=== PATIENT | female | born 1990 | race African-American/Black ===

== ENCOUNTER 2022-02-16 07:24 | Emergency (ER) | payer BC, OTHER ==
[2022-02-16 07:38] VITALS: BMI 34.4
[2022-02-16] MEDS ORDERED: SODIUM CHLORIDE 1,000 ML IV STA (08:01)
[2022-02-16 08:45] LABS: BASO % 1.7 % (0-2.0); EOS % 0.9 % (0-4.5); HEMATOCRIT 39.8 % (32.4-45.2); HEMOGLOBIN 13.3 GM/dL (10.7-15.3); LYMPH % 40.1 % (8-40); MCH 31.3 pg (25.7-33.7); MCHC 33.4 g/dl (32.0-36.0); MEAN CELL VOLUME 93.5 fl (80-96); MEAN PLT VOLUME 9.1 fl (7.5-11.1); MONO % 5.6 % (3.8-10.2); NEUT % 51.7 % (42.8-82.8); PLATELET COUNT 296 10^3/uL (134-434); RBC 4.26 M/mm3 (3.60-5.2); RDW 13.2 % (11.6-15.6); WHITE BLOOD COUNT 4.6 K/mm3 (4.0-10.0)
[2022-02-16 08:51] LABS: HCG,QUALITATIVE URINE Negative
[2022-02-16 09:15] LABS: ALBUMIN 3.5 g/dl (3.4-5.0); BLOOD UREA NITROGEN 12.6 mg/dL (7-18)
[2022-02-16 09:19] LABS: CREATININE 1.1 mg/dL (0.55-1.3)
[2022-02-16 09:21] LABS: BILIRUBIN,TOTAL 0.7 mg/dL (0.2-1); TOT PROT 7.3 g/dl (6.4-8.2)
[2022-02-16 10:04] LABS: URINE APPEARANCE CLOUDY; URINE BILIRUBIN NEGATIVE (NEGATIVE); URINE COLOR DARK YELLOW; URINE GLUCOSE (UA) NEGATIVE (NEGATIVE); URINE KETONE 1+ (NEGATIVE)
[2022-02-16 10:05] LABS: EPI CELLS 18 /uL (0-25.1); HYALINE CASTS 1 /uL (0-3.1); URINE LEUK ESTERASE 3+ (NEGATIVE); URINE NITRITE NEGATIVE (NEGATIVE); URINE PROTEIN 1+ (NEGATIVE); URINE RBC 45 /uL (0-23.9); URINE WBC 2509 /uL (0-25.8)
[2022-02-16 10:06] LABS: URINE BACTERIA 2942 /uL (0-1359)
[2022-02-16] MEDS ORDERED: cefTRIAXone SODIUM 1 GM VIAL ONE (10:34)
[2022-02-16 11:01] VITALS: BP 110/69; PULSE 78; RESP 16; TEMP 98.7
== END 2022-02-16 11:01 | disposition home or self-care (01) ==
LOC: JER 07:24
PROC: 3E0337Z Introduction of Electrolytic and Water Balance Substance into Peripheral Vein, Percutaneous Approach (ICD-10-PCS; principal; 2022-02-16)
PROC: 3E023GC Introduction of Other Therapeutic Substance into Muscle, Percutaneous Approach (ICD-10-PCS; 2022-02-16)
DX: K29.21 Alcoholic gastritis with bleeding (principal)
CPT/HCPCS: 0241U-QW; 36415; 76705-TC; 80053; 81003; 82150; 83690; 84703; 85025; 87086; 87186; 87491; 87591; 99284-25

== ENCOUNTER 2022-07-20 07:30 | Emergency (ER) | payer OTHER ==
[2022-07-20 08:10] VITALS: BMI 25.8
[2022-07-20] MEDS ORDERED: ONDANSETRON 4 MG/2 ML VIAL ONE (09:04)
[2022-07-20] MEDS ORDERED: morphine SULFATE 4 MG/ML VIAL ONE (09:04)
[2022-07-20] MEDS ORDERED: morphine CARPU-JECT 4 MG/1 ML DISP.SYRIN IVPUSH ONE (09:06)
[2022-07-20] MEDS ORDERED: ONDANSETRON 4 MG/2 ML VIAL IVPUSH ONE (09:07)
[2022-07-20] MEDS ORDERED: SODIUM CHLORIDE 1,000 ML IV STA (09:07)
[2022-07-20 09:59] LABS: POTASSIUM 3.6 mmol/L (3.5-5.1)
[2022-07-20 10:01] LABS: CALCIUM 9.3 mg/dL (8.5-10.1)
[2022-07-20 10:02] LABS: ALBUMIN 3.6 g/dl (3.4-5.0); BLOOD UREA NITROGEN 12.3 mg/dL (7-18)
[2022-07-20 10:04] LABS: BASO % 0.6 % (0-2.0); EOS % 0.3 % (0-4.5); HEMATOCRIT 37.1 % (32.4-45.2); INR 1.12 (0.83-1.09); MCH 32.7 pg (25.7-33.7); MCHC 35.1 g/dl (32.0-36.0); MEAN PLT VOLUME 9.1 fl (7.5-11.1); MONO % 4.5 % (3.8-10.2); NEUT % 77.6 % (42.8-82.8); PLATELET COUNT 390 10^3/uL (134-434); RBC 3.99 M/mm3 (3.60-5.2); RDW 13.3 % (11.6-15.6); WHITE BLOOD COUNT 8.5 K/mm3 (4.0-10.0)
[2022-07-20 10:05] LABS: CREATININE 0.9 mg/dL (0.55-1.3)
[2022-07-20 10:07] LABS: TOT PROT 7.8 g/dl (6.4-8.2)
[2022-07-20 14:47] VITALS: BP 136/82; PULSE 64; RESP 17; TEMP 97.9
[2022-07-20 14:47] LABS: EPI CELLS 18 /uL (0-25.1); HYALINE CASTS 4 /uL (0-3.1); PH,URINE 6.5 (5.0-8.0); URINE APPEARANCE CLEAR; URINE BACTERIA 16 /uL (0-1359); URINE BILIRUBIN NEGATIVE (NEGATIVE); URINE COLOR ORANGE; URINE GLUCOSE (UA) NEGATIVE (NEGATIVE); URINE KETONE 1+ (NEGATIVE); URINE LEUK ESTERASE NEGATIVE (NEGATIVE); URINE NITRITE NEGATIVE (NEGATIVE); URINE PROTEIN 1+ (NEGATIVE); URINE RBC 2218 /uL (0-23.9); URINE WBC 14 /uL (0-25.8)
== END 2022-07-20 14:50 | disposition home or self-care (01) ==
LOC: JER 07:30
PROC: 3E033NZ Introduction of Analgesics, Hypnotics, Sedatives into Peripheral Vein, Percutaneous Approach (ICD-10-PCS; principal; 2022-07-20)
PROC: 3E033GC Introduction of Other Therapeutic Substance into Peripheral Vein, Percutaneous Approach (ICD-10-PCS; 2022-07-20)
PROC: 3E0337Z Introduction of Electrolytic and Water Balance Substance into Peripheral Vein, Percutaneous Approach (ICD-10-PCS; 2022-07-20)
DX: R10.32 Left lower quadrant pain (principal); R11.2 Nausea with vomiting, unspecified; N83.8 Other noninflammatory disorders of ovary, fallopian tube and broad ligament
CPT/HCPCS: 36415; 74177-TC; 76830-TC; 80053; 81003; 82962; 83690; 84703; 85025; 85610; 99285-25; Q9967

== ENCOUNTER 2022-08-03 09:13 | Inpatient (IN) | payer OTHER ==
[2022-08-03] MEDS ORDERED: SODIUM CHLORIDE 1,000 ML IV STA (09:30)
[2022-08-03] MEDS ORDERED: ONDANSETRON 4 MG/2 ML VIAL IVPUSH ONE (09:32)
[2022-08-03] MEDS ORDERED: ONDANSETRON 4 MG/2 ML VIAL ONE (09:38)
[2022-08-03 10:17] VITALS: BMI 29.7
[2022-08-03 10:37] LABS: HEMATOCRIT 36.6 % (32.4-45.2); HEMOGLOBIN 12.8 GM/dL (10.7-15.3); MCH 32.8 pg (25.7-33.7); MCHC 34.9 g/dl (32.0-36.0); MEAN CELL VOLUME 94.2 fl (80-96); MEAN PLT VOLUME 8.9 fl (7.5-11.1); PLATELET COUNT 308 10^3/uL (134-434); RBC 3.88 M/mm3 (3.60-5.2); RDW 13.5 % (11.6-15.6); WHITE BLOOD COUNT 4.4 K/mm3 (4.0-10.0)
[2022-08-03 10:47] LABS: INR 1.06 (0.83-1.09); PROTHROMBIN TIME (PATIENT) 12.3 SEC (9.7-13.0)
[2022-08-03 10:49] LABS: ACTIVATED PTT 22.1 SECONDS (25.2-36.5)
[2022-08-03 11:07] LABS: POTASSIUM 4.6 mmol/L (3.5-5.1)
[2022-08-03 11:08] LABS: ALBUMIN 3.4 g/dl (3.4-5.0)
[2022-08-03 11:09] LABS: BLOOD UREA NITROGEN 10.2 mg/dL (7-18)
[2022-08-03 11:11] LABS: CREATININE 0.8 mg/dL (0.55-1.3)
[2022-08-03 11:13] LABS: BILIRUBIN,TOTAL 0.5 mg/dL (0.2-1); TOT PROT 7.2 g/dl (6.4-8.2)
[2022-08-03 12:33] LABS: EPI CELLS 12 /uL (0-25.1); HYALINE CASTS 1 /uL (0-3.1); PH,URINE 5.5 (5.0-8.0); URINE APPEARANCE CLEAR; URINE BACTERIA 20 /uL (0-1359); URINE BILIRUBIN NEGATIVE (NEGATIVE); URINE COLOR YELLOW; URINE GLUCOSE (UA) NEGATIVE (NEGATIVE); URINE KETONE NEGATIVE (NEGATIVE); URINE LEUK ESTERASE NEGATIVE (NEGATIVE); URINE NITRITE NEGATIVE (NEGATIVE); URINE PROTEIN NEGATIVE (NEGATIVE); URINE RBC 79 /uL (0-23.9); URINE UROBILINOGEN 0.2 mg/dL (0.2-1.0); URINE WBC 19 /uL (0-25.8)
[2022-08-03] MEDS ORDERED: LORazepam 2 MG/ML SDV VIAL IVPUSH ONE (13:37)
[2022-08-03] MEDS ORDERED: KETOROLAC TROMETHAMINE 15 MG/ML VIAL IVPUSH PRN (15:42)
[2022-08-03] MEDS ORDERED: valACYclovir HCL 500 MG TABLET (FP) ONE (17:45)
[2022-08-03] MEDS: valACYclovir HCL 500 MG TABLET (FP) PO SCH (17:48)
[2022-08-03] MEDS: traMADol HCL 50 MG TABLET PO PRN (20:24)
[2022-08-03] MEDS: ACETAMINOPHEN 1000 MG/100 ML BAG IVPB PRN (21:57)
[2022-08-04] MEDS: traMADol HCL 50 MG TABLET PO PRN ×2 (02:17→12:40)
[2022-08-04] MEDS: ACETAMINOPHEN 1000 MG/100 ML BAG IVPB PRN (06:07)
[2022-08-04 07:25] LABS: BASO % 0.7 % (0-2.0); EOS % 0.9 % (0-4.5); HEMATOCRIT 34.9 % (32.4-45.2); HEMOGLOBIN 12.3 GM/dL (10.7-15.3); LYMPH % 30.8 % (8-40); MCH 32.9 pg (25.7-33.7); MCHC 35.3 g/dl (32.0-36.0); MEAN CELL VOLUME 93.2 fl (80-96); MEAN PLT VOLUME 8.8 fl (7.5-11.1); MONO % 9.3 % (3.8-10.2); NEUT % 58.3 % (42.8-82.8); PLATELET COUNT 286 10^3/uL (134-434); RBC 3.75 M/mm3 (3.60-5.2); RDW 13.2 % (11.6-15.6); WHITE BLOOD COUNT 3.7 K/mm3 (4.0-10.0)
[2022-08-04 07:47] LABS: POTASSIUM 4.4 mmol/L (3.5-5.1)
[2022-08-04 07:52] LABS: CALCIUM 8.8 mg/dL (8.5-10.1)
[2022-08-04 07:53] LABS: ALBUMIN 3.3 g/dl (3.4-5.0); BLOOD UREA NITROGEN 5.2 mg/dL (7-18); MAGNESIUM 1.8 mg/dL (1.8-2.4)
[2022-08-04 07:56] LABS: CREATININE 0.8 mg/dL (0.55-1.3); PHOSPHOROUS 3.6 mg/dL (2.5-4.9)
[2022-08-04 07:57] LABS: BILIRUBIN,TOTAL 0.8 mg/dL (0.2-1)
[2022-08-04] MEDS: ENOXAPARIN NA (PORCINE) 40 MG/0.4 ML DISP.SYRIN SQ SCH (09:35)
[2022-08-04] MEDS: valACYclovir HCL 500 MG TABLET (FP) PO SCH (09:35)
[2022-08-05] MEDS: traMADol HCL 50 MG TABLET PO PRN (02:48)
[2022-08-05] MEDS ORDERED: ACETAMINOPHEN 325 MG TABLET (FP) PO PRN (09:06)
[2022-08-05] MEDS: ENOXAPARIN NA (PORCINE) 40 MG/0.4 ML DISP.SYRIN SQ SCH (10:51)
[2022-08-05] MEDS: valACYclovir HCL 500 MG TABLET (FP) PO SCH (10:51)
[2022-08-05 11:59] VITALS: RESP 18
[2022-08-05 13:04] VITALS: BP 141/84; PULSE 64; TEMP 98.1
== END 2022-08-05 15:30 | disposition home or self-care (01) | DRG 201 ==
LOC: JER 09:13 → JERBED 14:33 → J7W 19:33
PROVIDERS: ADMIT Internal Medicine
PROC: 0W9930Z Drainage of Right Pleural Cavity with Drainage Device, Percutaneous Approach (ICD-10-PCS; principal; 2022-08-03)
DX: J93.83 Other pneumothorax (principal); D64.9 Anemia, unspecified; N83.202 Unspecified ovarian cyst, left side; N83.201 Unspecified ovarian cyst, right side; R07.89 Other chest pain; N85.9 Noninflammatory disorder of uterus, unspecified
CPT/HCPCS: 0241U-QW; 32557; 36415; 71045-TC-FY; 71046-TC-FY; 71275-TC; 80053; 81003; 83735; 84100; 84484; 84703; 85025; 85027; 85379; 85610; 85730; 87086; 93005; 93010; 99285-25; Q9967

== ENCOUNTER 2023-01-08 18:05 | Emergency (ER) | payer OTHER ==
[2023-01-08 18:11] VITALS: BP 113/77; PULSE 91; RESP 18; TEMP 98.2; BMI 28.1
[2023-01-08] MEDS ORDERED: ACETAMINOPHEN 325 MG TABLET (FP) PO ONE (19:46)
[2023-01-08] MEDS ORDERED: ACETAMINOPHEN 325 MG TABLET (FP) ONE (20:14)
[2023-01-08 21:10] LABS: BASO % 2.3 % (0-2.0); EOS % 2.6 % (0-4.5); HEMATOCRIT 36.9 % (32.4-45.2); HEMOGLOBIN 12.5 GM/dL (10.7-15.3); LYMPH % 54.9 % (8-40); MCH 30.2 pg (25.7-33.7); MEAN CELL VOLUME 88.7 fl (80-96); MONO % 8.8 % (3.8-10.2); NEUT % 31.4 % (42.8-82.8); PLATELET COUNT 345 10^3/uL (134-434); RBC 4.16 M/mm3 (3.60-5.2); RDW 16.5 % (11.6-15.6); WHITE BLOOD COUNT 4.4 K/mm3 (4.0-10.0)
[2023-01-08 21:18] LABS: INR 1.03 (0.83-1.09); PROTHROMBIN TIME (PATIENT) 11.9 SEC (9.7-13.0)
[2023-01-08 21:43] LABS: ALBUMIN 3.8 g/dl (3.4-5.0); BLOOD UREA NITROGEN 21.6 mg/dL (7-18); MAGNESIUM 2.3 mg/dL (1.8-2.4)
[2023-01-08 21:46] LABS: CREATININE 1.1 mg/dL (0.55-1.3)
[2023-01-08 21:47] LABS: BILIRUBIN,TOTAL 0.3 mg/dL (0.2-1)
[2023-01-08 21:48] LABS: TOT PROT 7.8 g/dl (6.4-8.2)
[2023-01-08] MEDS ORDERED: KETOROLAC TROMETHAMINE 30 MG/1 ML VIAL IM ONE (21:53)
== END 2023-01-08 22:11 | disposition home or self-care (01) ==
LOC: JER 18:05
PROC: 3E0233Z Introduction of Anti-inflammatory into Muscle, Percutaneous Approach (ICD-10-PCS; principal; 2023-01-08)
DX: R07.81 Pleurodynia (principal)
CPT/HCPCS: 36415; 71046-TC-FY; 80053; 83735; 84484; 85025; 85379; 85610; 93005; 93010; 99285-25

== ENCOUNTER 2024-06-14 17:04 | Emergency (ER) | payer OTHER ==
[2024-06-14 17:34] VITALS: BP 140/89; PULSE 94; RESP 18; TEMP 98.8; BMI 23.5
[2024-06-14] MEDS ORDERED: HALOPERIDOL LACTATE 5 MG/ML ONE (18:39)
[2024-06-14] MEDS: HALOPERIDOL LACTATE 5 MG/ML IM ONE (18:43)
== END 2024-06-14 21:40 | disposition left against medical advice (07) ==
LOC: JER 17:04
PROC: 3E023GC Introduction of Other Therapeutic Substance into Muscle, Percutaneous Approach (ICD-10-PCS; principal; 2024-06-14)
DX: R11.2 Nausea with vomiting, unspecified (principal)
CPT/HCPCS: 82962; 99284-25